=== PATIENT | male | born 1985 | race Caucasian/White ===

== ENCOUNTER 2018-04-28 22:59 | Emergency (ER) | payer BC, OTHER ==
--- NOTE | 2018-04-29 07:20 | RAD ---
MANDIBULAR RADIOGRAPH SERIES 4 VIEWS: Date: 04/28/18 INDICATION: Pain. FINDINGS: There is no fracture or dislocation of the mandible. Mandibular heads maintain alignment with respect to the visualized condylar fossae, bilaterally. Imaged mastoid air cells are clear. IMPRESSION: No acute abnormality of the mandible identified radiographically. If there is persistent concern, for an occult radiographic abnormality, consider CT of the face without contrast, as necessary. POS: [facility]
== END 2018-04-29 00:39 | disposition home or self-care (01) ==
LOC: ERS 22:59
DX: R68.84 Jaw pain (principal); W21.02XA Struck by soccer ball, initial encounter; Y99.8 Other external cause status
CPT/HCPCS: 70110